=== PATIENT | female | born 1955 | race Caucasian/White ===

== ENCOUNTER → 2018-11-02 | Outpatient (CLI) | payer OTHER ==
[2018-11-02 11:56] LABS: ALANINE AMINOTRANSFERASE 21 U/L (9-52); ALBUMIN 4.4 g/dL (3.5-5.0); ALKALINE PHOSPHATASE 84 U/L (38-126); ANION GAP 6 (5-19); ASPARTATE AMINO TRANSFERASE 24 U/L (14-36); BILIRUBIN,DIRECT 0.1 mg/dL (0.0-0.4); BILIRUBIN,TOTAL 0.7 mg/dL (0.2-1.3); BLOOD UREA NITROGEN 12 mg/dL (7-20); CALCIUM 8.6 mg/dL (8.4-10.2); CARBON DIOXIDE 32 mmol/L (22-30); CHLORIDE 103 mmol/L (98-107); CHOLESTEROL 209.64 mg/dL (0-200); GLUCOSE 92 mg/dL (75-110); POTASSIUM 4.7 mmol/L (3.6-5.0); SODIUM 141.3 mmol/L (137-145); TOTAL PROTEIN 6.8 g/dL (6.3-8.2); TRIGLYCERIDES 76 mg/dL (<150)
[2018-11-02 12:07] LABS: DIRECT LDL 125 mg/dL (<100)
[2018-11-02 12:11] LABS: THYROXINE T4 13.9 ug/dL (5.53-11.0)
[2018-11-02 12:24] LABS: TOTAL T3 1.31 ng/mL (0.970-1.69)
== END ==
LOC: OD 10:44
PROVIDERS: ATTEND Family Medicine
DX: Z13.1 Encounter for screening for diabetes mellitus (principal); Z85.50 Personal history of malignant neoplasm of unspecified urinary tract organ; Z13.220 Encounter for screening for lipoid disorders
CPT/HCPCS: 36415; 80053; 80061; 84436; 84443; 84480

== ENCOUNTER → 2018-12-06 | Outpatient (CLI) | payer OTHER | LOC: OD 12:07 | PROVIDERS: ATTEND Family Medicine | DX: E05.90 Thyrotoxicosis, unspecified without thyrotoxic crisis or storm (principal) | CPT/HCPCS: 36415; 84443 ==

== ENCOUNTER → 2019-04-20 | Outpatient (CLI) | payer OTHER ==
[2019-04-20 14:38] LABS: TOTAL T3 0.835 ng/mL (0.970-1.69)
== END ==
LOC: OD 11:49
PROVIDERS: ATTEND Family Medicine
DX: Z85.850 Personal history of malignant neoplasm of thyroid (principal)
CPT/HCPCS: 36415; 84436; 84443; 84480

== ENCOUNTER → 2019-08-10 | Outpatient (CLI) | payer OTHER ==
[2019-08-10 13:20] LABS: FREE T4 (FREE THYROXINE) 1.32 ng/dL (0.78-2.19)
[2019-08-10 13:33] LABS: THYROID STIMULATING HORMONE 0.51 uIU/mL (0.47-4.68)
== END ==
LOC: OD 11:54
PROVIDERS: ATTEND Student in an Organized Health Care Education/Training Program
DX: E03.9 Hypothyroidism, unspecified (principal)
CPT/HCPCS: 36415; 84439; 84443; 86800

== ENCOUNTER → 2019-10-31 | Outpatient (CLI) | payer OTHER ==
[2019-10-31 13:09] LABS: FREE T4 (FREE THYROXINE) 1.08 ng/dL (0.78-2.19)
[2019-10-31 13:22] LABS: THYROID STIMULATING HORMONE 10.4 uIU/mL (0.47-4.68)
== END ==
LOC: OD 11:50
PROVIDERS: ATTEND Student in an Organized Health Care Education/Training Program
DX: E03.9 Hypothyroidism, unspecified (principal)
CPT/HCPCS: 36415; 84439; 84443; 86800

== ENCOUNTER → 2020-10-09 | Outpatient (CLI) | payer OTHER ==
[2020-10-09 09:28] LABS: ABSOLUTE BASOPHILS # (AUTO) 0.1 10^3/uL (0.0-0.2); ABSOLUTE EOSINOPHILS # (AUTO) 0.4 10^3/uL (0.0-0.6); ABSOLUTE LYMPHOCYTES (AUTO) 3.1 10^3/uL (0.5-4.7); ABSOLUTE MONOCYTES (AUTO) 0.4 10^3/uL (0.1-1.4); ABSOLUTE NEUT (AUTO) 3.4 10^3/uL (1.7-8.2); BASOPHILS % (AUTO) 1.2 % (0-2); EOSINOPHILS % (AUTO) 5.6 % (0-6); HEMOGLOBIN 13.5 g/dL (12.0-15.5); LYMPHOCYTES % (AUTO) 41.7 % (13-45); MEAN CORPUSCULAR HEMOGLOBIN 31.1 pg (27.0-33.4); MEAN CORPUSCULAR HGB CONC 34.7 g/dL (32.0-36.0); MEAN CORPUSCULAR VOLUME 90 fl (80-97); MONOCYTES % (AUTO) 5.6 % (3-13); PLATELET COUNT 311 10^3/uL (150-450); RED BLOOD COUNT 4.36 10^6/uL (3.72-5.28); RED CELL DISTRIBUTION WIDTH 12.8 % (11.5-14.0); SEGMENTED NEUTROPHILS % (AUTO) 45.9 % (42-78); TOTAL CELLS COUNTED % (AUTO) 100 %; WHITE BLOOD COUNT 7.4 10^3/uL (4.0-10.5)
[2020-10-09 10:44] LABS: ALBUMIN 4.3 g/dL (3.5-5.0); ALKALINE PHOSPHATASE 87 U/L (38-126); ANION GAP 8 (5-19); ASPARTATE AMINO TRANSFERASE 34 U/L (14-36); BILIRUBIN,DIRECT 0.1 mg/dL (0.0-0.4); BILIRUBIN,TOTAL 0.6 mg/dL (0.2-1.3); BLOOD UREA NITROGEN 13 mg/dL (7-20); CALCIUM 8.8 mg/dL (8.4-10.2); CARBON DIOXIDE 30 mmol/L (22-30); CHLORIDE 102 mmol/L (98-107); CHOLESTEROL 250.36 mg/dL (0-200); GLUCOSE 92 mg/dL (75-110); IRON(TIBC) 188.9 ug/dL (37-170); POTASSIUM 4.6 mmol/L (3.6-5.0); TRIGLYCERIDES 158 mg/dL (<150)
[2020-10-09 10:55] LABS: DIRECT LDL 163 mg/dL (<100)
[2020-10-09 11:38] LABS: VLDL CHOLESTEROL 31.6 mg/dL (10-31)
== END ==
LOC: OD 08:41
PROVIDERS: ATTEND Family Medicine
DX: E78.5 Hyperlipidemia, unspecified (principal); R53.83 Other fatigue
CPT/HCPCS: 36415; 80053; 80061; 82306; 82607; 82728; 83540; 83550; 85025

== ENCOUNTER → 2020-10-09 | Outpatient (CLI) | payer OTHER ==
--- NOTE | 2020-10-09 10:36 | WOMENS IMAGING REPORT ---
EXAM DESCRIPTION: BILAT DIAGNOSTIC MAMMO W/CAD; U/S BREAST UNILAT LIMITED IMAGES COMPLETED DATE/TIME: 10/09/2020 9:43 am; 10/09/2020 10:17 am REASON FOR STUDY: N63.10 UNSPECIFIED LUMP IN THE RIGHT BREAST, UNSPECIFIED QUADRANT; RT [id number] 0 N63.10 UNSPECIFIED LUMP IN THE RIGHT BREAST, UNSPECIFIED SANJUANA COMPARISON: None. EXAM PARAMETERS: Standard craniocaudal and mediolateral oblique views of each breast recorded using digital acquisition. Additional right breast exaggerated craniocaudad view, 90 mediolateral view. Additional cone compression views in the CC and X CC orientation Ultrasound of the left far upper outer quadrant was performed. Read with the assistance of CAD: .[employer] Conf[employer] Analyst Version 9.2 LIMITATIONS: None. FINDINGS: RIGHT BREAST MASSES: In the very far right upper outer quadrant tail of Coronel about 17 to 18 cm from the nipple, a 5 mm spiculated mass is present. This is in the area palpable abnormality. CALCIFICATIONS: No new or suspicious calcifications. ARCHITECTURAL DISTORTION: None. ASYMMETRY: None noted. OTHER: No other significant findings. LEFT BREAST MASSES: No suspicious masses. CALCIFICATIONS: No new or suspicious calcifications. ARCHITECTURAL DISTORTION: None. ASYMMETRY: None noted. OTHER: No other significant finding. Right breast ultrasound: Ultrasound of the far right upper outer quadrant/tail of Coronel region was performed in the area palp able abnormality. At the 10 to 11 o'clock position about 18 cm from the nipple, a 5 mm spiculated ma ss with acoustic absorption is present, taller than wide, worrisome for malignancy. Ultrasound-guide d core biopsy with post biopsy clip placement and follow-up two-view mammograms recommended. Also in the far right breast upper outer quadrant, benign less than 5 mm intramammary lymph nodes are present with preserved central hilar fat. Normal axillary lymph nodes are present with normal corti ugo thickness and preserved central hilar fat. IMPRESSION: 5 mm malignant appearing mass at mammography and sonography, right breast tail of Spenc e. Ultrasound-guided core biopsy with post biopsy clip placement and follow-up two-view mammogram re commended BREAST DENSITY: b. There are scattered areas of fibroglandular density. BIRAD: ASSESSMENT: 5 Highly suggestive of malignancy. Biopsy should be performed in the absence of clinical contra-indication. RECOMMENDATION: RECOMMENDED FOLLOW UP: Right breast ultrasound-guided core biopsy with post biopsy c lip placement and immediate post procedure follow-up two-view mammogram SPECIFIC INTERVENTION/IMAGING/CONSULTATION RECOMMENDED:Right breast ultrasound-guided core biopsy wit h post biopsy clip placement and immediate post procedure follow-up two-view mammogram COMMUNICATION:These findings were not discussed with the patient. COMMENT: The patient has been notified of the results by letter per SA requirements. Additional no tification policies are in place for contacting patient with suspicious or incomplete findings. Quality ID #225: The [employer] recommends an annual screening mammogram for women aged 40 years or over. This facility utilizes a reminder system to ensure that all patients receive reminder letters, and/or direct phone calls for appointments. This includes reminders for routine scr eening mammograms, diagnostic mammograms, or other Breast Imaging Interventions when appropriate. Th is patient will be placed in the appropriate reminder system. TECHNICAL DOCUMENTATION: FINDING NUMBER: (1) ASSESSMENT: (1) JOB ID: [id number] 2010 [employer]- All Rights Reserved Reading location - IP/workstation name: [id number]
--- NOTE | 2020-10-09 10:36 | WOMENS IMAGING REPORT ---
EXAM DESCRIPTION: BILAT DIAGNOSTIC MAMMO W/CAD; U/S BREAST UNILAT LIMITED IMAGES COMPLETED DATE/TIME: 10/09/2020 9:43 am; 10/09/2020 10:17 am REASON FOR STUDY: N63.10 UNSPECIFIED LUMP IN THE RIGHT BREAST, UNSPECIFIED QUADRANT; RT [id number] N63.10 UNSPECIFIED LUMP IN THE RIGHT BREAST, UNSPECIFIED SANJUANA COMPARISON: None. EXAM PARAMETERS: Standard craniocaudal and mediolateral oblique views of each breast recorded using digital acquisition. Additional right breast exaggerated craniocaudad view, 90 mediolateral view. Additional cone compression views in the CC and X CC orientation Ultrasound of the left far upper outer quadrant was performed. Read with the assistance of CAD: .[employer]utter Version 9.2 LIMITATIONS: None. FINDINGS: RIGHT BREAST MASSES: In the very far right upper outer quadrant tail of Coronel about 17 to 18 cm from the nipple, a 5 mm spiculated mass is present. This is in the area palpable abnormality. CALCIFICATIONS: No new or suspicious calcifications. ARCHITECTURAL DISTORTION: None. ASYMMETRY: None noted. OTHER: No other significant findings. LEFT BREAST MASSES: No suspicious masses. CALCIFICATIONS: No new or suspicious calcifications. ARCHITECTURAL DISTORTION: None. ASYMMETRY: None noted. OTHER: No other significant finding. Right breast ultrasound: Ultrasound of the far right upper outer quadrant/tail of Coronel region was performed in the area palp able abnormality. At the 10 to 11 o'clock position about 18 cm from the nipple, a 5 mm spiculated ma ss with acoustic absorption is present, taller than wide, worrisome for malignancy. Ultrasound-guide d core biopsy with post biopsy clip placement and follow-up two-view mammograms recommended. Also in the far right breast upper outer quadrant, benign less than 5 mm intramammary lymph nodes are present with preserved central hilar fat. Normal axillary lymph nodes are present with normal corti ugo thickness and preserved central hilar fat. IMPRESSION: 5 mm malignant appearing mass at mammography and sonography, right breast tail of Spenc e. Ultrasound-guided core biopsy with post biopsy clip placement and follow-up two-view mammogram re commended BREAST DENSITY: b. There are scattered areas of fibroglandular density. BIRAD: ASSESSMENT: 5 Highly suggestive of malignancy. Biopsy should be performed in the absence of clinical contra-indication. RECOMMENDATION: RECOMMENDED FOLLOW UP: Right breast ultrasound-guided core biopsy with post biopsy c lip placement and immediate post procedure follow-up two-view mammogram SPECIFIC INTERVENTION/IMAGING/CONSULTATION RECOMMENDED:Right breast ultrasound-guided core biopsy wit h post biopsy clip placement and immediate post procedure follow-up two-view mammogram COMMUNICATION:These findings were not discussed with the patient. COMMENT: The patient has been notified of the results by letter per SA requirements. Additional no tification policies are in place for contacting patient with suspicious or incomplete findings. Quality ID #225: The [employer] recommends an annual screening mammogram for women aged 40 years or over. This facility utilizes a reminder system to ensure that all patients receive reminder letters, and/or direct phone calls for appointments. This includes reminders for routine scr eening mammograms, diagnostic mammograms, or other Breast Imaging Interventions when appropriate. Th is patient will be placed in the appropriate reminder system. TECHNICAL DOCUMENTATION: FINDING NUMBER: (1) ASSESSMENT: (1) JOB ID: [id number] 2010 [employer]- All Rights Reserved Reading location - IP/workstation name: [id number]
== END ==
LOC: WI 09:30
PROVIDERS: ATTEND Family Medicine
DX: N63.13 Unspecified lump in the right breast, lower outer quadrant (principal)
CPT/HCPCS: 76642; 77066

== ENCOUNTER → 2020-11-13 | Day surgery (SDC) | payer OTHER ==
[~2020-11-13] MED LIST: LIDOCAINE 2% INJ (20 MG/ML) 20 ML MDV ONE
== END ==
LOC: WI 12:58
PROVIDERS: ATTEND Surgery
DX: N63.10 Unspecified lump in the right breast, unspecified quadrant (principal)
CPT/HCPCS: 88342 ×2; 88341 ×2; 88305 ×2; 19083; 77065; J3490